=== PATIENT | male | born 1960 | race Asian ===

== ENCOUNTER 2021-01-08 20:04 | Emergency (ER) | payer OTHER ==
[~2021-01-08] VITALS: Ht 172.7 cm; Wt 83.9 kg
[2021-01-08 20:04] VITALS: BP 148/85; TEMP 98.5
[2021-01-08 21:05] LABS: PLATELET COUNT 159 K/uL (142-355)
[2021-01-08 21:20] LABS: POTASSIUM 3.8 mmol/L (3.6-5.2)
[2021-01-08] MEDS ORDERED: ALLO300T23 PO (23:13)
[2021-01-08] MEDS ORDERED: AMLODIPINE BESYLATE PO (23:13)
[2021-01-08] MEDS ORDERED: ASPIRIN DR PO (23:14)
[2021-01-08] MEDS ORDERED: LORA2INJ21 INJ (23:17)
[2021-01-08] MEDS ORDERED: D325 MCG PO (23:18)
[2021-01-08] MEDS ORDERED: LIPITOR80 MG PO (23:18)
[2021-01-08] MEDS ORDERED: DOCU100C10 PO (23:19)
[2021-01-08] MEDS ORDERED: FLUOXETINE20 MG PO (23:20)
[2021-01-08] MEDS ORDERED: KP FOLIC ACID1 MG PO (23:21)
[2021-01-08] MEDS ORDERED: LEVE500T5 PO (23:22)
[2021-01-08] MEDS ORDERED: TAMS0.4C PO (23:22)
[2021-01-08] MEDS ORDERED: B-1100 MG PO (23:23)
== END 2021-01-08 22:40 | disposition still patient (30) ==
LOC: ED 20:29
PROVIDERS: Emergency Medicine
DX: F03.90 Unspecified dementia, unspecified severity, without behavioral disturbance, psychotic disturbance, mood disturbance, and anxiety (principal); R45.1 Restlessness and agitation; I69.351 Hemiplegia and hemiparesis following cerebral infarction affecting right dominant side; I10 Essential (primary) hypertension; Z11.52 Encounter for screening for COVID-19; Z04.6 Encounter for general psychiatric examination, requested by authority
CPT/HCPCS: 36415; 80053; 83735; 85027; 87635; 93005; 99283; U0003